=== PATIENT | male | born 1990 | race Caucasian/White ===

== ENCOUNTER → 2020-09-01 14:31 | Outpatient (CLI) | payer OTHER, SELFPAY ==
--- NOTE | 2020-09-01 | DI.ECHO.S_ITS ---
[facility]---------+ [facility] +---------+ : : [address] : [address] : : : : [id number] : : : : Phone: [phone]+ Echocardiogram Report + + :Name: HARLEEN DUQUE Study Date: 09/01/2020 Height: 74 in : :[facility] Weight: 190 lb : : Gender: Male BSA: 2.1 m2 : :: 1990 Age: 30 yrs BP: 131/83 mmHg: :Reason For Study: HEART PALPITATIONS : :Ordering Physician: JUAN, : :DONNIE Performed By: Netta Gale : :Referring: DONNIE MARTINEZ : + + Interpretation Summary The left ventricle is normal in size and wall thickness. The ejection fraction is estimated to be 60-65%. The right ventricle is normal in size and function. No significant valvular pathology seen. The IVC is of normal diameter and collapses greater than 50% with a sniff. This suggests a low right atrial pressure of 3 mm Hg. In comparison to previous study, LV function is normal. It is not hyperdynamic. No significant LV outflow tract obstruction. Previous LV ejection fraction 70 to 75% and LV outflow tract velocity was about 1.6 m/s. Procedure: A two-dimensional transthoracic echocardiogram with color flow and Doppler was performed. The study quality was technically adequate. Comparison is made with the echocardiogram of 10/24/2019. The patient was in sinus rhythm with heart rates between 66-78 bpm during the exam. Left Ventricle: The left ventricle is normal in size and wall thickness. There is no thrombus. The ejection fraction is estimated to be 60-65%. There are no focal wall motion abnormalities. Diastolic parameters suggest probable normal left ventricular diastolic function and normal filling pressures. Right Ventricle: The right ventricle is normal in size and function. Atria: The left atrial size is normal. Right atrial size is normal. There is no Doppler evidence for an interatrial shunt. Mitral Valve: The mitral valve is normal in structure and function. There is systolic anterior motion of the chordal apparatus. There is trace mitral regurgitation. There has been no significant change since the previous study. Aortic Valve: The aortic valve is trileaflet. The aortic valve opens well. There is no aortic valve stenosis. No aortic regurgitation is present. Tricuspid Valve: The tricuspid valve is normal in structure and function. There is trace tricuspid regurgitation. Pulmonary artery pressures cannot be estimated because of the lack of a measurable TR jet velocity but the IVC suggests a CVP of around 3 mmHg. Pulmonic Valve: The pulmonic valve leaflets are thin and pliable; valve motion is normal. There is no pulmonic valvular regurgitation. Great Vessels: The aortic root is normal size. The dimensions of the ascending aorta are normal. The IVC is of normal diameter and collapses greater than 50% with a sniff. This suggests a low right atrial pressure of 3 mm Hg. Pericardium/ Pleura There is no pericardial effusion. There is no pleural effusion. MMode/2D Measurements & Calculations LVIDd: 4.2 cm LVOT diam: 2.1 cm LVIDs: 2.9 cm Ao root diam: 3.1 cm FS: 32.3 % asc Aorta Diam: 3.0 cm EPSS: 0.25 cm Ao Arch Diam (Prox Trans): 2.6 cm IVSd: 0.73 cm LVPWd: 0.90 cm LV alan. diameter/BSA (cm/m^2): 2.0 LV sys. diameter/BSA (cm/m^2): 1.4 LA A2 area: 14.8 cm2 RA long axis: 4.7 cm LA A4 area: 14.4 cm2 RA area: 15.7 cm2 LA length (vol): 4.3 cm RA vol: 44.7 ml LA vol: 42.6 ml RA : 21.0 ml/m2 LA vol index: 20.0 ml/m2 IVC diam: 1.9 cm RVD1 (basal): 4.0 cm TAPSE: 2.9 cm Doppler Measurements & Calculations Ao V2 max: 169.7 cm/sec LVOT Max Mikel: 134.0 cm/sec Ao V2 mean: 118.4 cm/sec LV V1 max P.2 mmHg Ao max P.5 mmHg LV V1 VTI: 28.1 cm Ao mean P.3 mmHg JAMIE(I,D): 2.7 cm2 Ao V2 VTI: 34.7 cm JAMIE(V,D): 2.7 cm2 sev ratio: 0.81 JAMIE indexed to BSA (cm^2/m^2): 1.3 MV E max mikel: 90.5 cm/sec PA V2 max: 92.7 cm/sec MV A max mikel: 52.8 cm/sec PA V2 mean: 58.2 cm/sec MV E/A: 1.7 PA mean P.6 mmHg Med Peak E' Mikel: 16.3 cm/sec PA pr(Accel): 15.6 mmHg E/E' med: 5.5 Lat Peak E' Mikel: 18.6 cm/sec E/E' lat: 4.9 E/e' average: 5.2 MV dec time: 0.19 sec SV(LVOT): 94.8 ml Reading Physician:05:11 PM
== END ==
PROVIDERS: Referring Provider Orthopaedic Surgery; Visit Provider Orthopaedic Surgery
DX: R00.2 Palpitations (principal)
CPT/HCPCS: 93306

== ENCOUNTER → 2020-11-22 08:49 | Outpatient (CLI) | payer OTHER, SELFPAY ==
[2020-11-22 11:53] LABS: COVID19 -Nasal RAPID Negative (Negative)
== END ==
PROVIDERS: Visit Provider Family Medicine Sleep Medicine
DX: Z20.822 Contact with and (suspected) exposure to COVID-19 (principal); G47.30 Sleep apnea, unspecified
CPT/HCPCS: 87635; 95810

== ENCOUNTER → 2021-01-04 08:10 | Outpatient (CLI) | payer OTHER, SELFPAY ==
[2021-01-04 10:23] LABS: COVID19 -Nasal RAPID Negative (Negative)
== END ==
PROVIDERS: Visit Provider Family Medicine Sleep Medicine
DX: Z20.822 Contact with and (suspected) exposure to COVID-19 (principal); G47.30 Sleep apnea, unspecified; G47.00 Insomnia, unspecified; R53.83 Other fatigue
CPT/HCPCS: 87635; 95810